=== PATIENT | female | born 1995 | race Caucasian/White ===

== ENCOUNTER 2022-05-03 07:35 | Inpatient (IN) ==
[2022-05-03] MEDS ORDERED: OXYTOCIN 30 UNITS/500 ML BAG IV PRN ×2 (08:57→20:45)
[2022-05-03] MEDS ORDERED: miSOPROStoL 25 MCG TAB PV SCH (09:15)
--- NOTE | 2022-05-03 09:17 | History & Physical Report ---
Date of Service May 03, 2022 Assessment & Plan (1) History of macrosomia in infant in prior , currently in third trimester: Plan: Cytotec 25 mcg vaginally for ripening planned Admission and Anticipated Discharge Date Admission Date: May 03, 2022 History of Present Illness Chief Complaint: induction of labor for history of macrosomia Primary Care Provider: Self, Referred 27 F [id number] at 39.3 weeks admitted for IOL for history of macrosomia with first baby. She did not have any problems with the delivery of the shoulders and only pushed for 30 minutes. She was induced with a Silvestre balloon that was somewhat traumatic to insert and had a labor greater than 24 hrs. Her GBS is negative. Covid is pending. Allergies Allergy/AdvReac Type Severity Reaction Status Date / Time No Known Allergies Allergy Verified 01/21/21 08:23 Home Medications Medication Instructions Recorded Confirmed Type iron,carbonyl 65 mg-vitamin C 125 tab PO 05/03/22 History mg tablet,delayed release (Vitron-C) prenat.vits,dinah,[id number] tab 05/03/22 History Patient History Social History Smoking Status: Never smoker Hx Alcohol Use: No Hx Substance Use: No Preferred Language: Swedish Communication Ability: Effective [employer] Dispatcher Required: No Beliefs That Will Affect Care: None marital status: Current Living Situation: Spouse and Other Current Living Situation Comment: Lives with and daughter Feels Safe at Home: Yes Safety Concerns: Feels Safe At This Time Immunizations: had Covid vaccine OB History history of 9 lb. baby with first [employer] History neg Review of Systems All systems reviewed & are unremarkable except as noted in HPI & below Physical Exam Constitutional: WD/WN, vitals as above Eyes: PERRL, conjunctivae normal, anicteric sclerae Respiratory: normal respiratory effort, lungs clear to auscultation Cardiovascular: RRR, no murmur, no edema Skin: no rashes, warm and dry no edema Neurologic: patellar DTR's 2+ bilat, sensation intact Psychiatric: A+Ox3, euthymic affect Genitourinary: no vaginal lesions, no adnexal mass normal external appearance OB Exam Abdomen: + fundal height, + vertex and + estimated weight (8.5-9 lbs) Manual OB Exam: + cervical dilation 1 cm, + cervical effacement 50% and + station high cervix firm and posterior Results & Data ([facility]) Vital Signs (Past 12 Hours) Vital Signs Temp Pulse Resp BP 05/03/22 07:54 120 H 105/71 05/03/22 07:49 36.9 C 120 H 18 105/71 Code Status & VTE Plan VTE Prophylaxis Plan VTE Prophylaxis will be ordered: No Monitoring External Monitor Cat 1
--- NOTE | 2022-05-03 09:31 | Labor Progress Brief Note ---
Date of Service May 03, 2022 Assessment & Plan Admission and Anticipated Discharge Date Admission Date: May 03, 2022 Physical Exam Genitourinary: OB Exam Monitor Tracing: + external FHT monitor used, + external uterine monitor used, + category I and + normal FHT variability Cytotec 25 mcg placed vaginally Results & Data ([facility]) Vital Signs (Past 12 Hours) Vital Signs Temp Pulse Resp BP 05/03/22 07:54 120 H 105/71 05/03/22 07:49 36.9 C 120 H 18 105/71
[2022-05-03 09:51] LABS: Hematocrit (blood only) 35.5 % (37-47); Hemoglobin 11.8 g/dL (12.0-16.0); Mean Corpuscular Hemoglobin 30.6 pg (25-34); Mean Corpuscular Hgb Conc 33.2 g/dL (32-36); Mean Platelet Volume 9.7 fL (7.4-10.4); Platelet Count 253 K/uL (130-400); RDW Coefficient of Variation 15.2 % (11.5-14.5); RDW Standard Deviation 51.3 fL (36.4-46.3); Red Blood Count 3.86 M/uL (4.2-5.4); White Blood Count 10.97 K/uL (4.8-10.8)
[2022-05-03] MEDS ORDERED: Nursing to Pharmacy Communication SCH (13:45)
[2022-05-03] MEDS: miSOPROStoL 50 MCG TAB PO SCH ×2 (13:49→18:48)
[2022-05-03] MEDS ORDERED: miSOPROStoL 50 MCG TAB PO SCH (16:00)
--- NOTE | 2022-05-03 20:45 | Labor Progress Brief Note ---
Date of Service May 03, 2022 Assessment & Plan Admission and Anticipated Discharge Date Admission Date: May 03, 2022 Physical Exam Genitourinary: Manual OB Exam: + cervical dilation 2 cm and 3 cm, + cervical effacement 60% and + station -2 OB Exam Monitor Tracing: + external FHT monitor used, + external uterine monitor used, + category I and + normal FHT variability will augment ctx with Oxytocin Results & Data ([facility]) Vital Signs (Past 12 Hours) Vital Signs Temp Pulse Resp BP 05/03/22 19:11 36.6 C 88 18 123/81 05/03/22 18:59 88 123/81 05/03/22 18:14 87 107/70 05/03/22 15:44 36.8 C 20 05/03/22 15:39 83 111/73 05/03/22 13:07 96 H 105/63 05/03/22 13:06 36.8 C
[2022-05-04] MEDS ORDERED: CALCIUM CARBONATE 500 MG CHEWABLE TAB PO PRN (00:02)
[2022-05-04] MEDS: LACTATED RINGER'S 1,000 ML IV PRN ×2 (00:47→04:16)
[2022-05-04] MEDS ORDERED: ePHEDrine sulfate 50 MG/ML AMP ONE (03:42)
[2022-05-04] MEDS ORDERED: fentaNYL citrate 100 MCG/2 ML VIAL ONE (03:43)
[2022-05-04] MEDS ORDERED: SODIUM CHLORIDE 0.9% INJ 10 ML VIAL ONE (03:43)
[2022-05-04] MEDS ORDERED: BUPIVACAINE 0.25% 30 ML VIAL ONE (03:44)
[2022-05-04] MEDS ORDERED: fentaNYL 2MCG/ML ROPIVACAINE 1.25MG/ML 100 ML BAG EPI ONE (03:44)
[2022-05-04] MEDS ORDERED: NALBUPHINE HCL INJ 10 MG/ML AMP IV PRN (03:55)
[2022-05-04] MEDS ORDERED: ePHEDrine sulfate 50 MG/ML AMP IV PRN (03:55)
[2022-05-04] MEDS ORDERED: diphenhydrAMINE 50 MG/ML VIAL IV PRN (03:55)
[2022-05-04] MEDS ORDERED: NALOXONE HCL 1 MG in SODIUM CHLORIDE 0.9% 1000ML 1,000 ML IV PRN (03:55)
[2022-05-04] MEDS ORDERED: NALOXONE HCL 0.4 MG/1 ML VIAL/CARP IV PRN (03:55)
[2022-05-04] MEDS ORDERED: fentaNYL 2MCG/ML ROPIVACAINE 1.25MG/ML 100 ML BAG EPI PRN (03:55)
--- NOTE | 2022-05-04 03:55 | Anesthesiology Consultation ---
Date of Service May 04, 2022 Assessment & Plan (1) Encounter for pre-operative examination: Chart Review Chart Review: Acceptable Risk for Surgery and Patient NOT seen in Pre Admission Testing Consults Requested none History Height/Weight Height: 5 ft 9 in Weight: 103.419 kg Allergies Allergy/AdvReac Type Severity Reaction Status Date / Time No Known Allergies Allergy Verified 01/21/21 08:23 Medications Home Medications Medication Instructions Recorded Confirmed Last Taken iron,carbonyl 65 mg-vitamin C 125 tab PO 05/03/22 05/02/22 mg tablet,delayed release (Vitron-C) prenat.vits,dinah,[id number] tab 05/03/22 05/02/22 Active Medications Generic Name Dose Route Start Last Admin Trade Name Freq PRN Reason Stop Dose Admin Calcium Carbonate 1,000 mg 05/04/22 00:02 05/04/22 00:57 Calcium Carbonate 500 Mg Chewable Tab PO 06/03/22 00:01 1,000 mg Q4H PRN Administration Indigestion Lactated Ringer's 1,000 mls @ 125 mls/hr 05/03/22 08:57 05/04/22 00:47 Lr IV 05/05/22 08:56 125 mls/hr .Q8H PRN Administration L&D Protocol Protocol Oxytocin 30 units in 500 mls @ 4 mls/hr 05/03/22 20:45 05/04/22 03:30 Pitocin IV 05/05/22 20:44 0.24 units/hr .Q24H PRN 4 mls/hr Labor Induction/Augmentation Titration Protocol 0.24 UNITS/HR Misoprostol 25 mcg 05/03/22 09:15 05/03/22 09:28 Misoprostol 25 Mcg Tab PV 06/02/22 09:14 25 mcg BID DAFNE Administration Misoprostol 50 mcg 05/03/22 14:00 05/03/22 18:48 Misoprostol 50 Mcg Tab PO 06/02/22 13:59 Not Given Q4H [facility] Social History Smoking Status: Never smoker Hx Alcohol Use: No Hx Substance Use: No Physical Exam Vital Signs Last Vital Signs Temp 98.2 F 05/04/22 03:33 Pulse 76 05/04/22 03:51 Resp 18 05/04/22 03:33 BP 101/60 05/04/22 02:51 Pulse Ox 98 05/04/22 03:51 Testing Laboratory Results 05/03/22 09:22 Blood Type A Positive 05/03/22 09:22 Antibody Screen NEGATIVE 05/03/22 09:22
--- NOTE | 2022-05-04 06:56 | Labor Progress Brief Note ---
Date of Service May 04, 2022 Assessment & Plan Admission and Anticipated Discharge Date Admission Date: May 03, 2022 Physical Exam Genitourinary: Manual OB Exam: + cervical dilation 4 cm, + cervical effacement 80%, + station -2 and + amniotic fluid clear OB Exam Monitor Tracing: + external FHT monitor used, + external uterine monitor used, + category I and + normal FHT variability AROM with Amni-hook clear fluid. epidural working well. Pitocin at 8. Results & Data ([facility]) Vital Signs (Past 12 Hours) Vital Signs Temp Pulse Resp BP Pulse Ox 05/04/22 06:52 86 122/60 05/04/22 06:51 94 H 99 05/04/22 06:46 77 98 05/04/22 06:41 73 98 05/04/22 06:36 78 100/66 99 05/04/22 06:31 79 18 99 05/04/22 06:26 71 98 05/04/22 06:21 75 105/65 99 05/04/22 06:16 78 98 05/04/22 06:11 76 99 05/04/22 06:06 73 98 05/04/22 06:05 82 105/64 05/04/22 06:01 72 18 98 05/04/22 05:56 85 97 05/04/22 05:52 75 103/63 05/04/22 05:51 79 98 05/04/22 05:46 76 18 97 05/04/22 05:41 75 97 05/04/22 05:36 76 109/62 98 05/04/22 05:31 70 18 97 05/04/22 05:26 76 97 05/04/22 05:21 72 107/61 98 05/04/22 05:16 67 18 96 05/04/22 05:11 69 97 05/04/22 05:06 72 98 05/04/22 05:03 71 106/61 05/04/22 05:01 71 107/63 97 05/04/22 04:59 65 108/62 05/04/22 04:57 75 105/61 05/04/22 04:56 74 98 05/04/22 04:55 70 109/63 05/04/22 04:53 62 109/63 05/04/22 04:52 64 106/60 05/04/22 04:51 68 98 05/04/22 04:49 68 99/55 L 05/04/22 04:47 65 96/51 L 05/04/22 04:46 66 100 05/04/22 04:45 70 92/54 L 05/04/22 04:42 71 84/46 L 05/04/22 04:41 65 90/54 L 98 05/04/22 04:40 18 05/04/22 04:36 64 99 05/04/22 04:35 18 05/04/22 04:31 74 99 05/04/22 04:30 18 05/04/22 04:26 87 98 05/04/22 04:25 18 05/04/22 04:24 81 115/71 05/04/22 04:21 78 111/70 99 05/04/22 04:19 78 113/69 05/04/22 04:17 77 110/70 05/04/22 04:16 92 H 116/76 100 05/04/22 04:11 78 100 05/04/22 04:06 95 H 100 05/04/22 04:04 100 H 90 05/04/22 04:01 83 100 05/04/22 03:56 91 H 99 05/04/22 03:51 76 98 05/04/22 03:33 36.8 C 18 05/04/22 02:51 83 101/60 05/04/22 01:50 80 104/57 L 05/04/22 00:49 88 113/70 05/04/22 00:00 36.8 C 18 05/03/22 19:11 36.6 C 88 18 123/81 05/03/22 18:59 88 123/81
[2022-05-04] MEDS ORDERED: ONDANSETRON INJ 2 MG/ML 2 ML VIAL IV PRN (09:55)
[2022-05-04] MEDS ORDERED: LIDOCAINE 1% LOCAL 20 ML VIAL ONE (11:10)
[2022-05-04] MEDS ORDERED: DIPHTHERIA/TETANUS/PERTUSSIS 0.5 ML SYR/VIAL IM ONE (11:30)
[2022-05-04] MEDS ORDERED: miSOPROStoL 200 MCG TAB PR ONE (11:30)
[2022-05-04] MEDS ORDERED: OXYTOCIN 30 UNITS/500 ML BAG IV PRN (11:30)
[2022-05-04] MEDS ORDERED: BENZOCAINE 20% AER SPR 82.5 GM CAN EXT PRN (11:30)
[2022-05-04] MEDS ORDERED: METHYLERGONOVINE MALEATE 0.2 MG/ML AMP IM ONE (11:30)
[2022-05-04] MEDS ORDERED: HYDROCORTISONE ACETATE 25 MG SUPP PR PRN (11:30)
[2022-05-04] MEDS ORDERED: ACETAMINOPHEN 325 MG TAB PO PRN (11:30)
[2022-05-04 11:36] LABS: Base Excess Cord Arterial Bld -2.3 mEq/L (-9-1.8); CO2 Cord Arterial Blood 49 mmHg (39.1-73.5); HCO3 Cord Arterial Blood 25 mmol/L (19.7-28.5); Oxygen Sat Cord Arterial Blood < 60.0 % (<60); PO2 Cord Arterial Blood 21 mmHg (4.1-31.7); pH Cord Arterial Blood 7.31 (7.1-7.38)
[2022-05-04 11:44] LABS: Base Excess Cord Venous Blood -1.5 mEq/L (-7.7-1.9); Cord Venous Blood HCO3 22 mmol/L (18.4-26.8); Cord Venous Blood PCO2 33 mmHg (30.4-57.2); Cord Venous Blood PO2 32 mmHg (14.1-43.3); Cord Venous Blood pH 7.43 (7.20-7.44); O2 Saturation Cord Venous Bld 73.9 % (<68)
--- NOTE | 2022-05-04 12:38 | Anesthesia Procedure Note ---
Date of Service May 04, 2022 Anesthesia Post Epidural Note Vital Signs Vital Signs: Temp Pulse Resp BP Pulse Ox 36.9 C 83 18 113/58 L 100 05/04/22 11:38 05/04/22 12:20 05/04/22 06:31 05/04/22 12:20 05/04/22 11:26 Notes Mental Status: alert / awake / arousable and participated in evaluation Nausea / Vomiting: adequately controlled Pain: adequately controlled Airway Patency, RR, SpO2: stable & adequate BP & HR: stable & adequate Hydration State: stable & adequate Neuraxial Anesthesia: was administered and sensory block is resolving Anesthetic Complications: no major complications apparent and Pt Satisfied with anesthetic care Epidural: Removed without complications and With tip intact
[2022-05-04] MEDS: IBUPROFEN 600 MG TAB PO PRN ×3 (12:56→20:16)
--- NOTE | 2022-05-04 14:29 | Delivery Summary ---
DATE OF DELIVERY: 05/04/2022 DELIVERY NOTE: The patient delivered a live in occiput anterior presentation. This was a com pound right hand presentation. No nuchal cord was noted. Infant was delivered and placed on mother' s abdomen. There was a terminal meconium. Delayed cord clamp was performed. Apgars is 8 and 9. Bala espinosa was spontaneously delivered. Inspection of the placenta shows a normal looking placenta with 3-vessel cord. Cord blood and cord gases were obtained. Inspection of the perineum shows a second-degree median laceration, which was repaired with 2-0 and 3 -0 Vicryl. Rectal exam post-repair showed good sphincter tone. Estimated blood loss was 450 mL. All sutures, laps and sponges were removed from the vagina and accounted for x2. Baby and mother are doing well in recovery. Job ID: [id number]
[2022-05-04] MEDS: DOCUSATE SODIUM 100 MG CAP PO SCH (20:16)
[2022-05-05] MEDS: IBUPROFEN 600 MG TAB PO PRN ×2 (02:46→21:04)
[2022-05-05 06:52] LABS: Hematocrit (blood only) 36.6 % (37-47); Hemoglobin 11.9 g/dL (12.0-16.0); Mean Corpuscular Hemoglobin 29.6 pg (25-34); Mean Corpuscular Hgb Conc 32.5 g/dL (32-36); Mean Platelet Volume 9.6 fL (7.4-10.4); Platelet Count 262 K/uL (130-400); RDW Coefficient of Variation 15.1 % (11.5-14.5); RDW Standard Deviation 50.4 fL (36.4-46.3); Red Blood Count 4.02 M/uL (4.2-5.4); White Blood Count 16.46 K/uL (4.8-10.8)
[2022-05-05] MEDS: DOCUSATE SODIUM 100 MG CAP PO SCH ×2 (08:16→21:04)
[2022-05-05] MEDS: PRENATAL VITAMIN 1 TAB PO SCH (08:16)
[2022-05-05] MEDS: FERROUS SULFATE 325 MG TAB PO SCH (08:17)
--- NOTE | 2022-05-05 08:58 | Obstetrical Progress Note ---
Date of Service May 05, 2022 Subjective Ambulation: ambulating normally Voiding: no voiding problems Passing Gas:: Yes Diet Tolerance:: regular diet Feeding Type:: breast feeding Current Pain Level(1-10): 0 doing well Physical Exam Constitutional WD/WN, vitals as above Respiratory normal respiratory effort, lungs clear to auscultation Cardiovascular RRR, no murmur, no edema Neurologic patellar DTR's 2+ bilat, sensation intact Results & Data ([facility]) Vital Signs (Past 12 Hours) Vital Signs Temp Pulse Resp BP Pulse Ox 05/05/22 04:33 36.7 C 83 16 95/64 L 95 05/04/22 23:45 36.5 C 86 22 108/74 96 Laboratory Results 05/03/22 05/03/22 05/04/22 09:22 09:22 10:55 WBC 10.97 H RBC 3.86 L Hgb 11.8 L Hct 35.5 L MCV 92.0 MCH 30.6 MCHC 33.2 RDW Std Deviation 51.3 H RDW Coeff of Rodrigo 15.2 H Plt Count 253 MPV 9.7 Cord ABG pH 7.31 Cord ABG pCO2 49 Cord ABG pO2 21 Cord ABG HCO3 25 Cord ABG Base Excess -2.3 Cord ABG O2 Sat < 60.0 Cord VBG pH Cord VBG pCO2 Cord VBG pO2 Cord VBG HCO3 Cord VBG Base Excess Cord VBG O2 Sat Blood Gas Comments REYNA Blood Type A Positive Antibody Screen NEGATIVE 05/04/22 05/05/22 10:55 06:15 WBC 16.46 H RBC 4.02 L Hgb 11.9 L Hct 36.6 L MCV 91.0 MCH 29.6 MCHC 32.5 RDW Std Deviation 50.4 H RDW Coeff of Rodrigo 15.1 H Plt Count 262 MPV 9.6 Cord ABG pH Cord ABG pCO2 Cord ABG pO2 Cord ABG HCO3 Cord ABG Base Excess Cord ABG O2 Sat Cord VBG pH 7.43 Cord VBG pCO2 33 Cord VBG pO2 32 Cord VBG HCO3 22 Cord VBG Base Excess -1.5 Cord VBG O2 Sat 73.9 H Blood Gas Comments A Blood Type Antibody Screen
[2022-05-05] MEDS ORDERED: bisacodyL 5 MG TABEC PO SCH (20:00)
[2022-05-06] MEDS ORDERED: bisacodyL 10 MG SUPP PR PRN (07:00)
[2022-05-06 07:33] LABS: Hematocrit (blood only) 34.6 % (37-47); Hemoglobin 11.5 g/dL (12.0-16.0)
[2022-05-06] MEDS: PRENATAL VITAMIN 1 TAB PO SCH (08:12)
[2022-05-06] MEDS: FERROUS SULFATE 325 MG TAB PO SCH (08:12)
[2022-05-06] MEDS: DOCUSATE SODIUM 100 MG CAP PO SCH (08:12)
--- NOTE | 2022-05-06 09:21 | Obstetrical Progress Note ---
Date of Service May 06, 2022 Subjective Ambulation: ambulating normally Voiding: no voiding problems Passing Gas:: Yes Diet Tolerance:: regular diet Lochia:: Small Feeding Type:: breast feeding Current Pain Level(1-10): 0 doing well Physical Exam Constitutional WD/WN, vitals as above Gastrointestinal (Abdomen) abdomen soft and non-tender. fundus firm Musculoskeletal Extremities: extremities normal to inspection neg Daniel's Skin no rashes, warm and dry Results & Data ([facility]) Vital Signs (Past 12 Hours) Vital Signs Temp Pulse Resp BP Pulse Ox 05/06/22 07:36 36.5 C 96 H 16 105/72 96 05/05/22 23:02 36.6 C 77 18 100/65 93 Laboratory Results 05/03/22 05/03/22 05/04/22 09:22 09:22 10:55 WBC 10.97 H RBC 3.86 L Hgb 11.8 L Hct 35.5 L MCV 92.0 MCH 30.6 MCHC 33.2 RDW Std Deviation 51.3 H RDW Coeff of Rodrigo 15.2 H Plt Count 253 MPV 9.7 Cord ABG pH 7.31 Cord ABG pCO2 49 Cord ABG pO2 21 Cord ABG HCO3 25 Cord ABG Base Excess -2.3 Cord ABG O2 Sat < 60.0 Cord VBG pH Cord VBG pCO2 Cord VBG pO2 Cord VBG HCO3 Cord VBG Base Excess Cord VBG O2 Sat Blood Gas Comments REYNA Blood Type A Positive Antibody Screen NEGATIVE 05/04/22 05/05/22 05/06/22 10:55 06:15 06:42 WBC 16.46 H RBC 4.02 L Hgb 11.9 L 11.5 L Hct 36.6 L 34.6 L MCV 91.0 MCH 29.6 MCHC 32.5 RDW Std Deviation 50.4 H RDW Coeff of Rodrigo 15.1 H Plt Count 262 MPV 9.6 Cord ABG pH Cord ABG pCO2 Cord ABG pO2 Cord ABG HCO3 Cord ABG Base Excess Cord ABG O2 Sat Cord VBG pH 7.43 Cord VBG pCO2 33 Cord VBG pO2 32 Cord VBG HCO3 22 Cord VBG Base Excess -1.5 Cord VBG O2 Sat 73.9 H Blood Gas Comments A Blood Type Antibody Screen
[2022-05-06] MEDS: IBUPROFEN 600 MG TAB PO PRN (18:34)
== END 2022-05-06 19:17 | disposition home or self-care (01) | DRG 807 ==
LOC: 4S1 07:35 → 4E2 05-04 15:05

== ENCOUNTER 2025-06-02 20:11 | Inpatient (IN) ==
[2025-06-02] MEDS: SODIUM CHLORIDE 0.9% 1,000 ML IV SCH (20:55)
[2025-06-02] MEDS: ONDANSETRON INJ 2 MG/ML 2 ML VIAL IV STA ×2 (20:55→23:09)
[2025-06-02 20:57] LABS: Hematocrit (blood only) 42.8 % (37.0-47.0); Hemoglobin 14.8 g/dl (12.0-16.0); Mean Corpuscular Hemoglobin 31.4 pg (25.0-34.0); Mean Corpuscular Volume 90.9 fL (80.0-100.0); Platelet Count 326 K/uL (130-400); RDW Standard Deviation 42.0 fL (36.4-46.3); Red Blood Count 4.71 M/uL (4.20-5.40); White Blood Count 18.33 K/ul (4.8-10.8)
--- NOTE | 2025-06-02 21:00 | Emergency Department Note ---
History of Present Illness General Chief complaint: Abdominal Pain Stated complaint: ABD PAIN, VOMITING Time Seen by Provider: 06/02/25 20:38 History of Present Illness Maximum Pain Intensity: 5 Patient is a 30-year-old female with past medical history significant for anxiety who presents to the emergency department for evaluation of upper abdominal pain, nausea and vomiting that started this afternoon. Historically, patient notes that she has been having issues with some upper abdominal discomfort, and indigestion/acid reflux symptoms. She was seen at [facility] last month and started on omeprazole. She states that this has been helping. Today, she was at the park with her children, and just generally did not feel well. She did have [employer] for lunch. Around 1400, she had to come in from playing with her children, feeling acutely nauseous, and promptly vomited. She has vomited about 6 times since then. She notes an epigastric abdominal pain that she rates a 5/10. She has had some loose stools. She has not had any medication for discomfort currently. She was previously told that her symptoms could be related to her gallbladder. She has not had any imaging. There is no known family history of any gallbladder disease. No urinary symptoms. Last menstrual period was 4 weeks ago. Home Medications Medication Instructions Recorded Confirmed Type escitalopram oxalate 5 mg tablet 5 mg PO DAILY 04/29/25 06/03/25 History (Lexapro) omeprazole 20 mg capsule,delayed 20 mg PO DAILY #30 caps 04/29/25 06/03/25 Rx release Allergies Allergy/AdvReac Type Severity Reaction Status Date / Time No Known Allergies Allergy Verified 06/03/25 00:19 Past Med/Surg History Problem List (Updated 06/03/25 @ 01:02 by Elisa Dougherty) Leukocytosis (Acute) Gallbladder sludge (Acute) Biliary colic (Acute) Intractable nausea and vomiting (Acute) Epigastric abdominal pain (Acute) Medical History (Updated 06/03/25 @ 01:02 by Elisa Dougherty) Anxiety Social History Smoking Status: Never smoker Hx Alcohol Use: No Hx Substance Use: No Preferred Language: Georgian Communication Ability: Effective Interior Paneler Required: No Beliefs That Will Affect Care: None marital status: Current Living Situation: Spouse and Other Current Living Situation Comment: Lives with and daughter Feels Safe at Home: Yes Review of Systems A total of 10 systems reviewed and were otherwise negative Physical Exam Vital Signs Vital Signs - 24 hr 06/02/25 20:19 06/02/25 21:27 06/02/25 22:57 Temperature 36.9 C Temperature Source Temporal Artery Scan Pulse Rate 101 H Pulse Rate [Finger] 76 84 Pulse Rhythm Regular Pulse Rhythm [Finger] Pulse Strength Normal Pulse Strength [Finger] Respiratory Rate 17 20 20 Respiratory Effort / Characteristics Non-Labored Spontaneous Respiratory Depth Normal Respiratory Pattern Regular Blood Pressure 112/77 Blood Pressure [Right Arm] 106/71 115/74 Blood Pressure Mean 88 Blood Pressure Mean [Right Arm] 82 87 Blood Pressure Position Sitting Blood Pressure Position [Right Arm] Sitting Sitting Pulse Oximetry 96 96 97 Oxygen Delivery Method Room Air Room Air Room Air Sepsis Recent Fever Within 48 Hours No Sepsis New/Unexplained Change in Mental Status N/A Sepsis Action Taken by Nursing No Action Required 06/02/25 23:30 06/03/25 01:30 Temperature Temperature Source Pulse Rate Pulse Rate [Finger] 81 77 Pulse Rhythm Pulse Rhythm [Finger] Regular Regular Pulse Strength Pulse Strength [Finger] Normal Normal Respiratory Rate 18 20 Respiratory Effort / Characteristics Non-Labored Spontaneous Non-Labored Spontaneous Respiratory Depth Normal Normal Respiratory Pattern Regular Regular Blood Pressure Blood Pressure [Right Arm] 144/89 H 98/66 L Blood Pressure Mean Blood Pressure Mean [Right Arm] 107 76 Blood Pressure Position Blood Pressure Position [Right Arm] Pulse Oximetry 96 95 Oxygen Delivery Method Room Air Room Air Sepsis Recent Fever Within 48 Hours Sepsis New/Unexplained Change in Mental Status Sepsis Action Taken by Nursing CONSTITUTIONAL: 30-year-old female in no acute distress seated on the chair in the [facility] area. EYES: Pupils equal, round, reactive to light and accommodation. EOMs intact without nystagmus. Sclera are anicteric. CARDIOVASCULAR: Regular rate and rhythm. Peripheral pulses easily palpable. RESPIRATORY: Breath sounds equal and clear to auscultation. ABDOMEN: Bowel sounds are present. The abdomen is soft, nondistended, mild tenderness to palpation in the epigastric region, no right upper quadrant tenderness. Negative Holley sign. No guarding or rebound. INTEGUMENTARY: No lesions or rash, normal skin turgor. LYMPH: No lymphadenopathy. Course Course The patient was seen and assessed as above. External medical records were reviewed. She presents to the emergency department for evaluation of upper abdominal pain with associated nausea and vomiting that started this afternoon. IV lock was initiated. Laboratory studies including CBC with differential, CMP, lipase, serum hCG and urinalysis were collected. She was hydrated with normal saline solution. She declined medication for discomfort, was agreeable to medication for nausea and was given Zofran IV. Gallbladder ultrasound was ordered. Diagnostics, as interpreted by me: Laboratory studies: Elevated white count at 18,300. No significant electrolyte imbalance requiring correction. Renal functions are normal. No transaminitis. Lipase is not elevated. test negative. Imaging studies: Gallbladder ultrasound notes gallbladder sludge and sludge in the common bile duct, but no gallstones. No gallbladder wall thickening. No pericholecystic fluid. Common bile duct measures 0.[address] scan with the abdomen and pelvis with IV contrast notes no acute infectious/inflammatory findings. Incidental right and left ovarian cysts noted. Appendix is normal. Patient noted increased discomfort when she returned from ultrasound and did request something for pain. She was reassessed. Laboratory studies were reviewed with her. She was given another dose of Zofran IV and morphine 4 mg IV. Ultrasound findings reviewed with her. I did recommend CT imaging to evaluate the abdomen in more detail and she was agreeable. Patient reassessed and CT scan findings were reviewed with her. She is still nauseous and dry heaving and her abdominal pain has returned. She was given additional morphine 4 mg IV and Phenergan 12.5 IV. All laboratory and diagnostic imaging studies reviewed with attending physician, Dr. Rene. She has persistent epigastric abdominal pain, nausea and vomiting despite several rounds of pain medicine and antiemetics. She has a fairly significant leukocytosis at over 18,000, and sludge noted on gallbladder ultrasound. She reports she has had episodes of pain like this before over the last several months. I am suspicious for biliary colic/gallbladder pathology. Admittedly, her pain is more epigastric than right upper quadrant, but given persistent findings, I did recommend admission/observation with her and she is agreeable. ED case maker consulted and consultation was placed with the [facility] for further care and management. Chronic conditions affecting care: Anxiety Differential diagnosis: GERD, gastritis, esophagitis, peptic ulcer disease, infectious versus inflammatory colitis/enteritis, foodborne illness, biliary pathology, appendicitis, bowel obstruction, perforation, abscess, mass or malignancy, electrolyte or metabolic abnormality, dehydration, among others. Administered Medications Discontinued Medications Sodium Chloride (Nss) 1,000 mls @ 999 mls/hr IV .Q1H1M DAFNE Stop: 06/02/25 21:45 Last Infusion: 06/02/25 22:07 Dose: Infused Documented By: Admin: 06/02/25 20:55 Dose: 999 mls/hr Documented By: PAOLA Promethazine HCl (Phenergan) 12.5 mg in 50.5 mls @ 202 mls/hr IV NOW STA Stop: 06/03/25 01:16 Last Infusion: 06/03/25 01:37 Dose: Infused Documented By: Admin: 06/03/25 01:12 Dose: 202 mls/hr Documented By: CARLSO Ioversol (Optiray 320 100ml) 100 ml IV ONCE ONE Stop: 06/02/25 23:17 Last Admin: 06/02/25 23:16 Dose: 93 ml Documented By: BILL Morphine Sulfate (Morphine Sulfate 4 Mg/Ml 1 Ml Carp\Vial) 4 mg IV NOW STA Stop: 06/02/25 23:03 Last Admin: 06/02/25 23:09 Dose: 4 mg Documented By: CARLOS Morphine Sulfate (Morphine Sulfate 4 Mg/Ml 1 Ml Carp\Vial) 4 mg IV NOW STA Stop: 06/03/25 01:03 Last Admin: 06/03/25 01:11 Dose: 4 mg Documented By: CARLOS Ondansetron HCl (Ondansetron Inj 2 Mg/Ml 2 Ml Vial) 4 mg IV NOW STA Stop: 06/02/25 20:45 Last Admin: 06/02/25 20:55 Dose: 4 mg Documented By: PAOLA Ondansetron HCl (Ondansetron Inj 2 Mg/Ml 2 Ml Vial) 4 mg IV NOW STA Stop: 06/02/25 23:03 Last Admin: 06/02/25 23:09 Dose: 4 mg Documented By: CARLOS Medical Decision Making Differential Diagnosis See ED Course. Medical Records Attestation: I reviewed the patient's medical records. Home Medications Current Medication List: was personally reviewed by me Laboratory Data Attestation: I reviewed the patient's lab results. 06/02/25 20:24 06/02/25 20:24 Lab Results 06/02/25 06/02/25 Range/Units 20:23 20:24 WBC 18.33 H (4.8-10.8) K/ul RBC 4.71 (4.20-5.40) M/uL Hgb 14.8 (12.0-16.0) g/dl Hct 42.8 (37.0-47.0) % MCV 90.9 (80.0-100.0) fL MCH 31.4 (25.0-34.0) pg MCHC 34.6 (32.0-36.0) g/dL RDW Std Deviation 42.0 (36.4-46.3) fL RDW Coeff of Rodrigo 12.6 (11.5-14.5) % Plt Count 326 (130-400) K/uL MPV 10.0 (9.4-12.4) fL Immature Gran % (Auto) 0.4 % Neut % (Auto) 92.4 % Lymph % (Auto) 3.9 % [place] % (Auto) 2.7 % Eos % (Auto) 0.3 % Baso % (Auto) 0.3 % Neut # (Auto) 16.95 H (1.40-6.50) K/uL Lymph # (Auto) 0.71 L (1.20-3.40) K/uL [place] # (Auto) 0.50 (0.11-0.59) K/uL Eos # (Auto) 0.05 (0.00-0.50) K/uL Baso # (Auto) 0.05 (0.00-0.20) K/uL Immature Gran # (Auto) 0.07 (0.01-0.20) K/uL Sodium 137 (136-145) mmol/L Potassium 3.8 (3.5-5.1) mmol/L Chloride 109 H (98-107) mmol/L Carbon Dioxide 20 L (21-32) mmol/L Anion Gap 8 (3-11) BUN 20 (6-23) mg/dl Creatinine 0.70 (0.6-1.2) mg/dl Est Cr Clr Drug Dosing 141.1 ml/min eGFR 119.24 BUN/Creatinine Ratio 28.6 H (10-20) Glucose 103 H (70-99(Fasting)) mg/dl Calcium 9.0 (8.6-10.3) mg/dl Total Bilirubin 0.8 (0.2-1.0) mg/dl AST 19 (13-39) U/L ALT 18 (7-52) U/L Alkaline Phosphatase 53 (34-104) U/L Total Protein 7.7 (6.0-8.3) gm/dl Albumin 4.3 (3.4-5.0) gm/dl Globulin 3.4 (2.5-4.0) gm/dl Albumin/Globulin Ratio 1.3 (0.9-2) Lipase 31 (11-82) U/L HCG, Qual Negative (Negative) Urine Color Yellow Urine Appearance Clear (Clear) Urine pH 7.5 (4.5-7.5) Ur Specific [place] 1.029 (1.000-1.030) Urine Protein Trace H (Negative) Urine Glucose (UA) Negative (Negative) Urine Ketones 1+ H (Negative) Urine Blood Negative (Negative) Urine Nitrite Negative (Negative) Urine Bilirubin Negative (Negative) Urine Urobilinogen Negative (Negative) Ur Leukocyte Esterase 2+ H (Negative) Urine WBC (Auto) 11-20 H (0-5) /hpf Urine RBC (Auto) 0-2 (0-2) /hpf U Hyaline Cast (Auto) 0-2 (0-2) /lpf U Epithel Cells (Auto) 6-10 H (0-2) /hpf Urine Bacteria (Auto) 2+ H (None Seen) Urine Mucus Present A (None Prsent) Urine Comment Imaging Data Attestation: I personally reviewed and interpreted this imaging study as follows: Radiologist's Impression: Gallbladder Ultrasound 06/02/25 20:38 Exam(s): US GALLBLADDER EXAM: US Abdomen Limited, Gallbladder CLINICAL HISTORY: Reason for exam: UPPER ABD PAIN, N/V. TECHNIQUE: Real-time ultrasound of the right upper quadrant with image documentation. COMPARISON: No relevant prior studies available. FINDINGS: Liver: Hepatic steatosis. Gallbladder: Sonographic Holley Holley's sign is negative. No gallstones. Common bile duct: Minimal biliary sludge. Common bile duct measures 0. 45 cm. No stones. No dilation. Pancreas: Unremarkable as visualized. Right kidney: Unremarkable. No stones. No hydronephrosis. Right kidney measures 12.3 cm in length. Other vasculature: Main portal vein is patent. IMPRESSION: Biliary sludge without evidence acute cholecystitis Electronically signed by: Jordan Ames MD 06/02/25 22:45 PM Abdomen/Pelvis CT 06/02/25 23:02 Exam(s): CT ABDOMEN + PELVIS With Contrast IV Amt: 93 ML OPTIRAY 320 EXAM: CT Abdomen and Pelvis With Intravenous Contrast CLINICAL HISTORY: Reason for exam: EPIGASTRIC ABD PAIN, N/V. TECHNIQUE: Axial computed tomography images of the abdomen and pelvis with intravenous contrast. Automated exposure control was utilized for the study. A dose lowering technique was utilized adhering to the principles of ALARA. CONTRAST: Patient received 93 ML OPTIRAY 320 of IV contrast COMPARISON: No relevant prior studies available. FINDINGS: Lung bases: Unremarkable. No mass. No consolidation. ABDOMEN: Liver: Unremarkable. No mass. Gallbladder and bile ducts: Unremarkable. No calcified stones. No ductal dilation. Pancreas: Unremarkable. No mass. No ductal dilation. Spleen: Unremarkable. No splenomegaly. Adrenals: Unremarkable. No mass. Kidneys and ureters: Unremarkable. No solid mass. No hydronephrosis. Stomach and bowel: Fluid-filled nondilated loops of small bowel within the midabdomen. No mucosal thickening. PELVIS: Appendix: No findings to suggest acute appendicitis. Bladder: Unremarkable. No mass. Reproductive: 3 cm right ovarian cysts. 2.3 cm left ovarian cyst. ABDOMEN and PELVIS: Intraperitoneal space: Unremarkable. No free air. No significant fluid collection. Bones/joints: No acute fracture. No dislocation. Soft tissues: Unremarkable. Vasculature: Unremarkable. No abdominal aortic aneurysm. Lymph nodes: Unremarkable. No enlarged lymph nodes. IMPRESSION: No acute findings in the abdomen or pelvis. Electronically signed by: Jordan Ames MD 06/03/25 00:42 AM MDM Narrative See ED Course. Impression & Plan Epigastric abdominal pain, Intractable nausea and vomiting, Biliary colic, Gallbladder sludge, Leukocytosis Discharge Plan Visit Data Chief Complaint: Abdominal Pain Stated Complaint: ABD PAIN, VOMITING ED Provider: Ramesh Rene ED Midlevel Provider: Elisa Dougherty Discharge Problem: Epigastric abdominal pain, Intractable nausea and vomiting, Biliary colic, Gallbladder sludge, Leukocytosis Patient Disposition: Being Evaluated by Hospitalist Condition: Fair Forms Stand Alone Forms: [facility] [employer] Prescriptions Prescriptions: No Action escitalopram oxalate [Lexapro] 5 mg tablet 5 mg PO DAILY omeprazole 20 mg capsule,delayed release(DR/EC) 20 mg PO DAILY Qty: 30 0RF Referrals Referrals: John Fairchild MD [Primary Care Provider] -
[2025-06-02 21:16] LABS: Alanine Aminotransferase 18.0 U/L (7-52); Albumin Globulin Ratio 1.3 (0.9-2); Alkaline Phosphatase 53.0 U/L (34-104); Anion Gap 8.0 (3-11); Bilirubin,Total 0.8 mg/dl (0.2-1.0); Blood Urea Nitrogen 20.0 mg/dl (6-23); Calcium 9.0 mg/dl (8.6-10.3); Carbon Dioxide 20.0 mmol/L (21-32); Chloride 109.0 mmol/L (98-107); Creatinine Clr Calc Pharmacy 141.1 ml/min; Globulin 3.4 gm/dl (2.5-4.0); Glucose 103.0 mg/dl (70-99(Fasting)); Lipase 31.0 U/L (11-82); Potassium 3.8 mmol/L (3.5-5.1); Sodium 137.0 mmol/L (136-145); Total Protein 7.7 gm/dl (6.0-8.3)
[2025-06-02 21:19] LABS: Pregnancy Test, Serum Negative (Negative)
[2025-06-02 21:36] LABS: Appearance Urine Clear (Clear); Bacteria Urine Automated 2+ (None Seen); Cast Urine Automated 0-2 /lpf (0-2); Glucose Urine UA Negative (Negative)
[2025-06-02 21:43] LABS: RBC Urine Automated 0-2 /hpf (0-2)
--- NOTE | 2025-06-02 22:46 | Ultrasound Report ---
Exam(s): US GALLBLADDER EXAM: US Abdomen Limited, Gallbladder CLINICAL HISTORY: Reason for exam: UPPER ABD PAIN, N/V. TECHNIQUE: Real-time ultrasound of the right upper quadrant with image documentation. COMPARISON: No relevant prior studies available. FINDINGS: Liver: Hepatic steatosis. Gallbladder: Sonographic Holley Holley's sign is negative. No gallstones. Common bile duct: Minimal biliary sludge. Common bile duct measures 0. 45 cm. No stones. No dilation. Pancreas: Unremarkable as visualized. Right kidney: Unremarkable. No stones. No hydronephrosis. Right kidney measures 12.3 cm in length. Other vasculature: Main portal vein is patent. IMPRESSION: Biliary sludge without evidence acute cholecystitis Electronically signed by: Jordan Ames MD 06/02/25 22:45 PM
[2025-06-02 22:48] LABS: Immature Granulocytes # (auto) 0.07 K/uL (0.01-0.20); Immature Granulocytes % (auto) 0.4 %
[2025-06-02] MEDS: MoRPHine SULFATE 4 MG/ML 1 ML CARP\\VIAL IV STA (23:09)
[2025-06-02] MEDS: OPTIRAY 320 100ml IV ONE (23:16)
--- NOTE | 2025-06-03 00:43 | CT Scan Report ---
Exam(s): CT ABDOMEN + PELVIS With Contrast IV Amt: 93 ML OPTIRAY 320 EXAM: CT Abdomen and Pelvis With Intravenous Contrast CLINICAL HISTORY: Reason for exam: EPIGASTRIC ABD PAIN, N/V. TECHNIQUE: Axial computed tomography images of the abdomen and pelvis with intravenous contrast. Automated exposure control was utilized for the study. A dose lowering technique was utilized adhering to the principles of ALARA. CONTRAST: Patient received 93 ML OPTIRAY 320 of IV contrast COMPARISON: No relevant prior studies available. FINDINGS: Lung bases: Unremarkable. No mass. No consolidation. ABDOMEN: Liver: Unremarkable. No mass. Gallbladder and bile ducts: Unremarkable. No calcified stones. No ductal dilation. Pancreas: Unremarkable. No mass. No ductal dilation. Spleen: Unremarkable. No splenomegaly. Adrenals: Unremarkable. No mass. Kidneys and ureters: Unremarkable. No solid mass. No hydronephrosis. Stomach and bowel: Fluid-filled nondilated loops of small bowel within the midabdomen. No mucosal thickening. PELVIS: Appendix: No findings to suggest acute appendicitis. Bladder: Unremarkable. No mass. Reproductive: 3 cm right ovarian cysts. 2.3 cm left ovarian cyst. ABDOMEN and PELVIS: Intraperitoneal space: Unremarkable. No free air. No significant fluid collection. Bones/joints: No acute fracture. No dislocation. Soft tissues: Unremarkable. Vasculature: Unremarkable. No abdominal aortic aneurysm. Lymph nodes: Unremarkable. No enlarged lymph nodes. IMPRESSION: No acute findings in the abdomen or pelvis. Electronically signed by: Jordan Ames MD 06/03/25 00:42 AM
[2025-06-03] MEDS: MoRPHine SULFATE 4 MG/ML 1 ML CARP\\VIAL IV STA (01:11)
[2025-06-03] MEDS: PROMETHAZINE 12.5 MG/50.5 ML BAG IV STA (01:12)
--- NOTE | 2025-06-03 04:43 | History & Physical Report ---
Date of Service June 03, 2025 Assessment & Plan (1) Epigastric abdominal pain: Plan: 30-year-old female with past medical history significant for depression, GERD comes because of abdominal pain. Since yesterday afternoon she is having significant epigastric abdominal pain. No radiation. Associated with nausea and vomiting. Had a small amount of diarrhea. Denies any blood in stool. Micturating okay. No fevers. No chest pain. No shortness of breath. No headache. No runny nose or sore throat. Currently pain is improved in the ER. Hemodynamics are okay.Had a similar kind of pain in the past associated with spicy food. Epigastric abdominal pain Associated with spicy food intake Gallbladder ultrasound showed biliary sludge without evidence of acute cholecystitis CT abdomen pelvis no acute findings LFTs okay Will keep patient n.p.o., IV fluids, pain control IV Pepcid. Continue home omeprazole Will follow HIDA scan and if positive will consult surgery Leukocytosis UTI We will follow-cultures Will empirically place on Zosyn Depression Lexapro Disposition Medical floor Full code. History of Present Illness Chief Complaint: Abdominal pain Primary Care Provider: John Fairchild MD 30-year-old female with past medical history significant for depression, GERD comes because of abdominal pain. Since yesterday afternoon she is having significant epigastric abdominal pain. No radiation. Associated with nausea and vomiting. Had a small amount of diarrhea. Denies any blood in stool. Micturating okay. No fevers. No chest pain. No shortness of breath. No headache. No runny nose or sore throat. Currently pain is improved in the ER. Hemodynamics are okay.Had a similar kind of pain in the past associated with spicy food. Past medical history. As mentioned above. Past surgical history. None. Socially social history. . No smoking. Alcohol occasionally. No drug use. Family history. Not on file. Allergies Allergy/AdvReac Type Severity Reaction Status Date / Time No Known Allergies Allergy Verified 06/03/25 00:19 Home Medications Medication Instructions Recorded Confirmed Type escitalopram oxalate 5 mg tablet 5 mg PO DAILY 04/29/25 06/03/25 History (Lexapro) omeprazole 20 mg capsule,delayed 20 mg PO DAILY #30 caps 04/29/25 06/03/25 Rx release Past Med/Surg History Problem List (Updated 06/03/25 @ 01:02 by Elisa Dougherty) Leukocytosis (Acute) Gallbladder sludge (Acute) Biliary colic (Acute) Intractable nausea and vomiting (Acute) Epigastric abdominal pain (Acute) Medical History (Updated 06/03/25 @ 01:02 by Elisa Dougherty) Anxiety Social History Smoking Status: Never smoker Hx Alcohol Use: No Hx Substance Use: No Preferred Language: German Communication Ability: Effective Mathematical Physicist Required: No Beliefs That Will Affect Care: None marital status: Current Living Situation: Spouse and Other Current Living Situation Comment: Lives with and daughter Feels Safe at Home: Yes Review of Systems Review of Systems: All systems reviewed & are unremarkable except as noted in HPI & below Physical Exam Physical Exam: General- adult Head- atraumatic Eyes- PERRL. ENT- oropharynx clear Neck- supple, no JVD. Lungs- clear to auscultation no wheezing or crackles Heart- regular rate and rhythm; no murmur, no gallop. Abdomen- normal bowel sounds, soft, nontender, no distension Extremities- no pretibial edema, no erythema seen Neuro- alert, oriented PERRL, no facial palsy; no dysarthria; moves extremities Results & Data Results & Data Vital Signs (Past 12 Hours) Vital Signs Temp Pulse Pulse Resp BP BP Pulse Ox 06/03/25 03:00 60 16 95/68 L 95 06/03/25 02:30 63 16 92/66 L 95 06/03/25 02:00 59 L 16 105/65 96 06/03/25 01:30 77 20 98/66 L 95 06/02/25 23:30 81 18 144/89 H 96 06/02/25 22:57 84 20 115/74 97 06/02/25 21:27 76 20 106/71 96 06/02/25 20:19 36.9 C 101 H 17 112/77 96 O2 Del Method 06/03/25 03:00 Room Air 06/03/25 02:30 Room Air 06/03/25 02:00 Room Air 06/03/25 01:30 Room Air 06/02/25 23:30 Room Air 06/02/25 22:57 Room Air 06/02/25 21:27 Room Air 06/02/25 20:19 Room Air Diagnostic Findings Laboratory Results WBC 18.33 K/ul (4.8-10.8) H 06/02/25 20:24 RBC 4.71 M/uL (4.20-5.40) 06/02/25 20:24 Hgb 14.8 g/dl (12.0-16.0) 06/02/25 20:24 Hct 42.8 % (37.0-47.0) 06/02/25 20:24 MCV 90.9 fL (80.0-100.0) 06/02/25 20: MCH 31.4 pg (25.0-34.0) 06/02/25 20: MCHC 34.6 g/dL (32.0-36.0) 06/02/25 20: RDW Std Deviation 42.0 fL (36.4-46.3) 06/02/25 20: RDW Coeff of Rodrigo 12.6 % (11.5-14.5) 06/02/25: Plt Count 326 K/uL (130-400) 06/02/25 20:24 MPV 10.0 fL (9.4-12.4) 06/02/25 20:24 Immature Gran % (Auto) 0.4 % 06/02/25: Neut % (Auto) 92.4 % 06/02/25 20: Lymph % (Auto) 3.9 % 06/02/25 20:24 [place] % (Auto) 2.7 % 06/02/25:24 Eos % (Auto) 0.3 % 06/02/25 20: Baso % (Auto) 0.3 % 06/02/25 20:24 Neut # (Auto) 16.95 K/uL (1.40-6.50) H 06/02/25 20:24 Lymph # (Auto) 0.71 K/uL (1.20-3.40) L 06/02/25 20:24 [place] # (Auto) 0.50 K/uL (0.11-0.59) 06/02/25 20:24 Eos # (Auto) 0.05 K/uL (0.00-0.50) 06/02/25 20: Baso # (Auto) 0.05 K/uL (0.00-0.20) 06/02/25 20:24 Immature Gran # (Auto) 0.07 K/uL (0.01-0.20) 06/02/25 20:24 Sodium 137 mmol/L (136-145) 06/02/25 20:24 Potassium 3.8 mmol/L (3.5-5.1) 06/02/25 20:24 Chloride 109 mmol/L (98-107) H 06/02/25 20:24 Carbon Dioxide 20 mmol/L (21-32) L 06/02/25 20:24 Anion Gap 8 (3-11) 06/02/25 20:24 BUN 20 mg/dl (6-23) 06/02/25 20:24 Creatinine 0.70 mg/dl (0.6-1.2) 06/02/25 20:24 Est Cr Clr Drug Dosing 141.1 ml/min 06/02/25 20:24 eGFR 119.24 06/02/25 20:24 BUN/Creatinine Ratio 28.6 (10-20) H 06/02/25 20:24 Glucose 103 mg/dl (70-99(Fasting)) H 06/02/25 20:24 Calcium 9.0 mg/dl (8.6-10.3) 06/02/25 20:24 Total Bilirubin 0.8 mg/dl (0.2-1.0) 06/02/25 20:24 AST 19 U/L (13-39) 06/02/25 20:24 ALT 18 U/L (7-52) 06/02/25 20:24 Alkaline Phosphatase 53 U/L (34-104) 06/02/25 20:24 Total Protein 7.7 gm/dl (6.0-8.3) 06/02/25 20:24 Albumin 4.3 gm/dl (3.4-5.0) 06/02/25 20:24 Globulin 3.4 gm/dl (2.5-4.0) 06/02/25 20:24 Albumin/Globulin Ratio 1.3 (0.9-2) 06/02/25 20:24 Lipase 31 U/L (11-82) 06/02/25 20:24 HCG, Qual Negative (Negative) 06/02/25 20:24 Urine Color Yellow 06/02/25 20:23 Urine Appearance Clear (Clear) 06/02/25 20:23 Urine pH 7.5 (4.5-7.5) 06/02/25 20:23 Ur Specific [place] 1.029 (1.000-1.030) 06/02/25 20:23 Urine Protein Trace (Negative) H 06/02/25 20:23 Urine Glucose (UA) Negative (Negative) 06/02/25 20:23 Urine Ketones 1+ (Negative) H 06/02/25 20:23 Urine Blood Negative (Negative) 06/02/25 20:23 Urine Nitrite Negative (Negative) 06/02/25 20:23 Urine Bilirubin Negative (Negative) 06/02/25 20:23 Urine Urobilinogen Negative (Negative) 06/02/25 20:23 Ur Leukocyte Esterase 2+ (Negative) H 06/02/25 20:23 Urine WBC (Auto) 11-20 /hpf (0-5) H 06/02/25 20:23 Urine RBC (Auto) 0-2 /hpf (0-2) 06/02/25 20:23 U Hyaline Cast (Auto) 0-2 /lpf (0-2) 06/02/25 20:23 U Epithel Cells (Auto) 6-10 /hpf (0-2) H 06/02/25 20:23 Urine Bacteria (Auto) 2+ (None Seen) H 06/02/25 20:23 Urine Mucus Present (None Prsent) A 06/02/25 20:23 Urine Comment 06/02/25 20:23 Impressions Gallbladder Ultrasound 06/02/25 20:38 Exam(s): US GALLBLADDER EXAM: US Abdomen Limited, Gallbladder CLINICAL HISTORY: Reason for exam: UPPER ABD PAIN, N/V. TECHNIQUE: Real-time ultrasound of the right upper quadrant with image documentation. COMPARISON: No relevant prior studies available. FINDINGS: Liver: Hepatic steatosis. Gallbladder: Sonographic Holley Holley's sign is negative. No gallstones. Common bile duct: Minimal biliary sludge. Common bile duct measures 0. 45 cm. No stones. No dilation. Pancreas: Unremarkable as visualized. Right kidney: Unremarkable. No stones. No hydronephrosis. Right kidney measures 12.3 cm in length. Other vasculature: Main portal vein is patent. IMPRESSION: Biliary sludge without evidence acute cholecystitis Electronically signed by: Jordan Ames MD 06/02/25 22:45 PM Abdomen/Pelvis CT 06/02/25 23:02 Exam(s): CT ABDOMEN + PELVIS With Contrast IV Amt: 93 ML OPTIRAY 320 EXAM: CT Abdomen and Pelvis With Intravenous Contrast CLINICAL HISTORY: Reason for exam: EPIGASTRIC ABD PAIN, N/V. TECHNIQUE: Axial computed tomography images of the abdomen and pelvis with intravenous contrast. Automated exposure control was utilized for the study. A dose lowering technique was utilized adhering to the principles of ALARA. CONTRAST: Patient received 93 ML OPTIRAY 320 of IV contrast COMPARISON: No relevant prior studies available. FINDINGS: Lung bases: Unremarkable. No mass. No consolidation. ABDOMEN: Liver: Unremarkable. No mass. Gallbladder and bile ducts: Unremarkable. No calcified stones. No ductal dilation. Pancreas: Unremarkable. No mass. No ductal dilation. Spleen: Unremarkable. No splenomegaly. Adrenals: Unremarkable. No mass. Kidneys and ureters: Unremarkable. No solid mass. No hydronephrosis. Stomach and bowel: Fluid-filled nondilated loops of small bowel within the midabdomen. No mucosal thickening. PELVIS: Appendix: No findings to suggest acute appendicitis. Bladder: Unremarkable. No mass. Reproductive: 3 cm right ovarian cysts. 2.3 cm left ovarian cyst. ABDOMEN and PELVIS: Intraperitoneal space: Unremarkable. No free air. No significant fluid collection. Bones/joints: No acute fracture. No dislocation. Soft tissues: Unremarkable. Vasculature: Unremarkable. No abdominal aortic aneurysm. Lymph nodes: Unremarkable. No enlarged lymph nodes. IMPRESSION: No acute findings in the abdomen or pelvis. Electronically signed by: Jordan Ames MD 06/03/25 00:42 AM Code Status & VTE Plan VTE Prophylaxis Plan VTE Prophylaxis will be ordered: Yes
[2025-06-03] MEDS ORDERED: D5W AND 1/2NSS 1,000 ML IV SCH (05:05)
[2025-06-03] MEDS ORDERED: Nursing to Pharmacy Communication SCH (06:15)
[2025-06-03] MEDS: ONDANSETRON INJ 2 MG/ML 2 ML VIAL IV PRN (06:16)
[2025-06-03] MEDS: PIPERACILLIN/TAZOBACTAM 4.5 GM/100 ML BAG IV STA (06:18)
[2025-06-03 06:59] LABS: Hematocrit (blood only) 38.4 % (37.0-47.0); Hemoglobin 13.0 g/dl (12.0-16.0); Immature Granulocytes # (auto) 0.05 K/uL (0.01-0.20); Immature Granulocytes % (auto) 0.5 %; Mean Corpuscular Hemoglobin 31.6 pg (25.0-34.0); Mean Corpuscular Volume 93.2 fL (80.0-100.0); Platelet Count 248 K/uL (130-400); RDW Standard Deviation 43.2 fL (36.4-46.3); Red Blood Count 4.12 M/uL (4.20-5.40); White Blood Count 9.65 K/ul (4.8-10.8)
[2025-06-03 07:23] LABS: Alanine Aminotransferase 12.0 U/L (7-52); Alkaline Phosphatase 41.0 U/L (34-104); Anion Gap 5.0 (3-11); Bilirubin,Total 0.9 mg/dl (0.2-1.0); Blood Urea Nitrogen 16.0 mg/dl (6-23); Calcium 7.9 mg/dl (8.6-10.3); Carbon Dioxide 21.0 mmol/L (21-32); Chloride 110.0 mmol/L (98-107); Creatinine Clr Calc Pharmacy 154.3 ml/min; Glucose 131.0 mg/dl (70-99(Fasting)); Magnesium 1.8 mg/dl (1.7-2.4); Potassium 3.6 mmol/L (3.5-5.1); Sodium 136.0 mmol/L (136-145); Total Protein 6.3 gm/dl (6.0-8.3)
[2025-06-03] MEDS: SODIUM CHLORIDE 0.9% 1,000 ML IV SCH (07:59)
[2025-06-03] MEDS: FAMOTIDINE 20MG IV PUSH 20 MG/5 ML SYR IV SCH (08:38)
[2025-06-03] MEDS: HYDROmorphone INJ 0.5 MG/0.5 ML SYR IV PRN (08:38)
[2025-06-03] MEDS: ESCITALOPRAM OXALATE 10 MG TAB PO SCH (08:56)
--- NOTE | 2025-06-03 12:14 | Communication Note ---
Date of Service: June 03, 2025 Patient seen and examined Reports upper central abd pain, not referred, associated with nausea. Last vomiting was this AM Denied fever, chills CT abd/pelvis did not show any acute findings Gall bladder USS noted biliary sludge without evidence of cholecystitis Awaiting HIDA scan ordered on admission Currently on empirical antibiotics Continue antiemetics prn and PPI
[2025-06-03] MEDS: PIPERACILLIN/TAZOBACTAM 4.5 GM/100 ML BAG IV SCH (13:23)
[2025-06-03] MEDS: MoRPHine SULFATE 2 MG/ML CARP ONE (15:23)
--- NOTE | 2025-06-03 16:08 | Nuclear Medicine Report ---
NUCLEAR MEDICINE HEPATOBILIARY SCAN CLINICAL HISTORY: Abdominal pain. Gallbladder sludge. Evaluate for acute cholecystitis. COMPARISON: Right upper quadrant ultrasound and CT of the abdomen and pelvis June 02, 2025. TECHNIQUE: 5 mCi of technetium 99m Choletec IV was injected at 2:05 PM on June 03, 2020. Immediatel y following injection, imaging of the abdomen was carried out for 60 minutes in the anterior projecti on. Gallbladder radiotracer activity was not identified at 60 minutes. Therefore, 2 mg of morphine wa s made is to and imaging was carried out for an additional 30 minutes. FINDINGS: Hepatic uptake of radiotracer is prompt and homogeneous. Radiotracer is identified within the common bile duct and small bowel at 10 minutes. No radiotracer within the gallbladder was noted a t 60 minutes. Therefore, morphine was administered. Radiotracer within the gallbladder was noted at 7 0 minutes. IMPRESSION: 1. No evidence for acute cholecystitis. 2. Delayed visualization of gallbladder radiotracer, as described above. This raises the possibility of chronic cholecystitis. ACT 112: Negative or not required by law. Electronically signed by: Urbano Kat M.D. 06/03/2025 4:06 PM
[2025-06-03] MEDS: SINCALIDE 1.8 MCG in SODIUM CHLORIDE 0.9% 100 ML IV ONE (17:13)
[2025-06-03] MEDS: ACETAMINOPHEN 1,000 MG/100 ML VIAL IV PRN (21:01)
[2025-06-04 09:23] LABS: Hematocrit (blood only) 41.0 % (37.0-47.0); Hemoglobin 13.9 g/dl (12.0-16.0); Mean Corpuscular Hemoglobin 31.6 pg (25.0-34.0); Mean Corpuscular Volume 93.2 fL (80.0-100.0); Platelet Count 283 K/uL (130-400); RDW Standard Deviation 43.2 fL (36.4-46.3); Red Blood Count 4.40 M/uL (4.20-5.40); White Blood Count 6.66 K/ul (4.8-10.8)
[2025-06-04 09:51] LABS: Alanine Aminotransferase 13.0 U/L (7-52); Albumin Globulin Ratio 1.3 (0.9-2); Alkaline Phosphatase 43.0 U/L (34-104); Anion Gap 6.0 (3-11); Bilirubin,Total 0.6 mg/dl (0.2-1.0); Blood Urea Nitrogen 9.0 mg/dl (6-23); Calcium 8.4 mg/dl (8.6-10.3); Carbon Dioxide 23.0 mmol/L (21-32); Chloride 108.0 mmol/L (98-107); Creatinine Clr Calc Pharmacy 145.2 ml/min; Globulin 3.0 gm/dl (2.5-4.0); Glucose 83.0 mg/dl (70-99(Fasting)); Magnesium 2.0 mg/dl (1.7-2.4); Potassium 3.3 mmol/L (3.5-5.1); Sodium 137.0 mmol/L (136-145); Total Protein 7.0 gm/dl (6.0-8.3)
[2025-06-04] MEDS ORDERED: POTASSIUM PHOS 3 MMOL/1 ML INFUSION IV STA (10:02)
[2025-06-04] MEDS: POTASSIUM PHOSPHATE 21 MMOL in SODIUM CHLORIDE 0.9% 500 ML IV ONE (10:23)
[2025-06-04 15:34] VITALS: BP 126/85; PULSE 73; RESP 18; TEMP 98.4; O2SAT 99
--- NOTE | 2025-06-04 15:41 | Discharge Summary ---
Date of Service June 04, 2025 Admission HPI Per Admitting Provider 30-year-old female with past medical history significant for depression, GERD comes because of abdominal pain. Since yesterday afternoon she is having significant epigastric abdominal pain. No radiation. Associated with nausea and vomiting. Had a small amount of diarrhea. Denies any blood in stool. Micturating okay. No fevers. No chest pain. No shortness of breath. No headache. No runny nose or sore throat. Currently pain is improved in the ER. Hemodynamics are okay.Had a similar kind of pain in the past associated with spicy food. Past medical history. As mentioned above. Past surgical history. None. Socially social history. . No smoking. Alcohol occasionally. No drug use. Family history. Not on file. Admission Exam Per Admitting Provider General- adult Head- atraumatic Eyes- PERRL. ENT- oropharynx clear Neck- supple, no JVD. Lungs- clear to auscultation no wheezing or crackles Heart- regular rate and rhythm; no murmur, no gallop. Abdomen- normal bowel sounds, soft, nontender, no distension Extremities- no pretibial edema, no erythema seen Neuro- alert, oriented PERRL, no facial palsy; no dysarthria; moves extremities Principal Diagnosis Severe abdominal pain and vomiting Possible gastritis Discharge Exam Constitutional + well hydrated; no acute distress Eyes PERRL, conjunctivae normal, anicteric sclerae ENMT external ear and nose normal, oropharynx normal Respiratory normal respiratory effort, lungs clear to auscultation Cardiovascular Rate/Rhythm: regular rate and regular rhythm Gastrointestinal (Abdomen) normal bowel sounds, soft, nontender, no hepatosplenomegaly Neurologic PERRL, EOMI, accommodation nl, no face palsy, no dysarthria Psychiatric A+Ox3, euthymic affect Discharge Data Allergies Allergy/AdvReac Type Severity Reaction Status Date / Time No Known Allergies Allergy Verified 06/03/25 00:19 Consultations 06/03/25 01:29 ED Decision to Admit Stat Ordered Studies 06/02/25 20:38 US gallbladder Stat 06/02/25 23:02 CT abd pelvis IV con only Stat Hospital Course (1) Epigastric abdominal pain: 30-year-old female with past medical history significant for depression, GERD comes because of abdominal pain. Since yesterday afternoon she is having significant epigastric abdominal pain. No radiation. Associated with nausea and vomiting. Had a small amount of diarrhea. Denies any blood in stool. Micturating okay. No fevers. No chest pain. No shortness of breath. No headache. No runny nose or sore throat. Currently pain is improved in the ER. Hemodynamics are okay.Had a similar kind of pain in the past associated with spicy food. Epigastric abdominal pain Associated with spicy food intake CT abdomen pelvis did not show any acute findings Gallbladder ultrasound showed biliary sludge without evidence of acute cholecystitis LFTs and lipase are normal HIDA scan did not show evidence of acute cholecystitis but delayed visualization of gall bladder tracer raises possibility of chronic cholecystitis Patient was managed with IV fluids, PPI and pepcid Symptoms improved remarkably She did not have RUQ tenderness, abd pain was in epigastrium, no fevers. Leukocytosis on admission quickly resolved with IVF Leukocytosis likely from hemoconcentration from dehydration as all cell lines decreased with IVF Patient reported she had similar symptoms in the past which resolved with prilosec Possible gastritis Patient was discharged on PPI and Pepcid for 2 weeks If symptoms does not improve, PCP to consider GI referral Total Time Total Time Spent Total Time Spent (In Minutes): 35 Total Time Includes: Examination of the Patient, Discharge Planning and Medication Reconciliation Discharge Plan Discharge Items Patient Disposition: Home - Self-Care Reason For Visit: ABDOMINAL PAIN Discharge Diagnosis: Severe abdominal pain and vomiting Possible gastritis Condition on Discharge: Fair Activity: Resume your previous activity Non-emergency contact: Primary Care Provider Call non-emergency contact if: you have any medication questions and your symptoms worsen Follow-up/Referrals: Kristine Santos MD [Primary Care Provider] - 06/10/25 9:00 am (Date & Time 06/10/2025 9:00 AM Provider: Kristine Schwartz MD Family Medicine [facility] ) Diet: Regular Addtl Attending Provider Instructions: Mrs Granger You were hospitalized and managed for the above listed diagnoses. You are being discharged on pantoprazole for the next 2 weeks If symptoms recur or persist, your Primary Doctor can refer to Gastroenterology for further evaluation and management. It was a pleasure taking care of you Pending Studies at Discharge: No Stand-Alone Forms: My [facility], Work/School Release, Smoking Cessation Medications and DC Order Prescriptions: New pantoprazole 40 mg Tablet,Delayed Release (Dr/Ec) 40 mg PO BID 14 Days Qty: 28 0RF famotidine [Pepcid AC] 20 mg tablet 20 mg PO BID Qty: 30 0RF Continued escitalopram oxalate [Lexapro] 5 mg tablet 5 mg PO DAILY Discontinued omeprazole 20 mg capsule,delayed release(DR/EC) 20 mg PO DAILY Qty: 30 0RF Discharge Orders: Discharge Order (Routine); Ordered 06/04/25 Ordered By: Argenis Sanford/Other Patient Handouts: ED Abdominal Pain Adult Admission Data Admit Date/Time: 06/03/25 04:33 Attending Provider: Argenis Garcias I. Admit Provider: Jony Garduno Primary Care Provider: Kristine Santos Other Providers: Jony Garduno; Giovanny Phillips Other Interventions: Discharge Summary Assessment (RN) Last Done: 06/04/25 15:09
== END 2025-06-04 17:14 | disposition home or self-care (01) | DRG 392 ==
LOC: ED 20:11 → EDINP 06-03 04:33 → SUATTDRO 06-03 04:33 → 3W 06-03 16:51